=== PATIENT | male | born 1970 | race Caucasian/White ===

== ENCOUNTER 2018-11-11 19:48 | Emergency (ER) | payer SELFPAY ==
[~2018-11-11] VITALS: Ht 188 cm; Wt 122.7 kg
[~2018-11-11 19:48] MED LIST: BACTRIM DS1 TAB PO; DILAUDID 2MG2 MG/TA1 PO; GABAPENTIN250 MG/5 M PO; HYDROCHLOROT25 MG PO; MORPHINE SUL30 M3 PO; MS CONTIN30 MG PO; PAXIL40 MG PO; PERCOCET 5/321 COMBO PO; RIFADIN300 MG PO; RISPERDAL0.5 MG PO; ZOFRAN ODT4 MG OR
[2018-11-11 21:07] VITALS: BP 153/88
== END 2018-11-11 21:07 | disposition home or self-care (01) | DRG 605 ==
LOC: ED 19:48
DX: S90.31XA Contusion of right foot, initial encounter (principal); M79.671 Pain in right foot; W22.8XXA Striking against or struck by other objects, initial encounter; Y93.89 Activity, other specified; Y92.89 Other specified places as the place of occurrence of the external cause; Y99.0 Civilian activity done for income or pay